=== PATIENT | female | born 1970 | race Caucasian/White ===

== ENCOUNTER 2018-02-24 15:18 | Emergency (ER) | payer MEDICAID ==
[~2018-02-24] VITALS: Ht 157.5 cm; Wt 53.2 kg
[2018-02-24 15:58] LABS: BASOPHIL % 0.3 % (0-2); PLATELET COUNT 306 x10^3mcL (130-400); RED CELL DISTRIBUTION WIDTH 12.7 % (11.5-14.5)
[2018-02-24 16:12] LABS: FREE T4 0.97 ng/dL (0.76-1.46); T4(THYROXINE) 5.8 ug/dL (4.7-13.3)
[2018-02-24 16:13] LABS: ALKALINE PHOSPHATASE 89 U/L (46-116); ALT/SGPT 32 U/L (14-59); AST/SGOT 14 U/L (15-37); BILIRUBIN TOTAL 0.38 mg/dL (0.20-1.00); CARBON DIOXIDE 26.1 mmol/L (21-32); CHLORIDE SERUM 100 mmol/L (98-107); CREATININE SERUM 0.8 mg/dL (0.6-1.0); GFR1 > 60 mL/min; POTASSIUM SERUM 3.9 mmol/L (3.5-5.1); SODIUM SERUM 135 mmol/L (136-145)
[2018-02-24 16:14] LABS: ALBUMIN 3.3 g/dL (3.4-5.0)
[2018-02-24 16:15] LABS: GLUCOSE SERUM 486 mg/dL (74-106)
[2018-02-24 16:48] LABS: T3 TOTAL 0.81 ng/mL
[2018-02-24 16:50] LABS: AMPHETAMINE QUAL UR NONE DETECTED (See below)
[2018-02-24 17:49] VITALS: BP 113/66
== END 2018-02-24 17:49 | disposition home or self-care (01) ==
LOC: ED 15:18
PROVIDERS: Emergency Medicine
DX: E11.65 Type 2 diabetes mellitus with hyperglycemia (principal)
CPT/HCPCS: 36415; 84439

== ENCOUNTER 2018-04-27 15:34 | Emergency (ER) | payer MEDICAID ==
[~2018-04-27] VITALS: Ht 160 cm; Wt 52.2 kg
[2018-04-27 16:00] VITALS: Ht 160 cm; Wt 52.2 kg
[2018-04-27 18:24] LABS: CALCIUM 8.8 mg/dL (8.5-10.1); CARBON DIOXIDE 29.5 mmol/L (21-32); CHLORIDE SERUM 102 mmol/L (98-107); CREATININE SERUM 0.5 mg/dL (0.6-1.0); GFR1 > 60 mL/min; GLUCOSE SERUM 335 mg/dL (74-106); POTASSIUM SERUM 3.5 mmol/L (3.5-5.1); SODIUM SERUM 138 mmol/L (136-145)
[2018-04-27 19:17] VITALS: BP 101/70
== END 2018-04-27 19:17 | disposition home or self-care (01) ==
LOC: ED 15:34
PROVIDERS: Emergency Medicine
DX: L30.9 Dermatitis, unspecified (principal); E11.65 Type 2 diabetes mellitus with hyperglycemia
CPT/HCPCS: Q0163

== ENCOUNTER 2019-04-21 07:32 | Emergency (ER) | payer MEDICAID ==
[~2019-04-21] VITALS: Ht 160 cm; Wt 49.0 kg
[2019-04-21 07:38] VITALS: Ht 160 cm; Wt 49.0 kg
[2019-04-21 08:30] LABS: CALCIUM 8.7 mg/dL (8.5-10.1); CARBON DIOXIDE 27.3 mmol/L (21-32); CHLORIDE SERUM 102 mmol/L (98-107); CREATININE SERUM 0.5 mg/dL (0.6-1.0); GFR1 > 60 mL/min; GLUCOSE SERUM 274 mg/dL (74-106); POTASSIUM SERUM 3.9 mmol/L (3.5-5.1); SODIUM SERUM 140 mmol/L (136-145)
[2019-04-21 08:34] LABS: ALBUMIN 3.6 g/dL (3.4-5.0); ALKALINE PHOSPHATASE 92 U/L (46-116); ALT/SGPT 34 U/L (14-59); AST/SGOT 15 U/L (15-37); BILIRUBIN TOTAL 0.3 mg/dL (0.20-1.00); LIPASE 333 IU/L (73-393); TOTAL PROTEIN, SERUM 7.6 g/dL (6.4-8.2)
[2019-04-21 08:56] LABS: BASOPHIL % 0.3 % (0-2); PLATELET COUNT 282 x10^3mcL (130-400); RED CELL DISTRIBUTION WIDTH 12.8 % (11.5-14.5)
[2019-04-21 09:50] LABS: microscopic required? YES; urine erythrocyte NEGATIVE (NEGATIVE)
[2019-04-21 12:00] VITALS: BP 124/75
== END 2019-04-21 12:08 | disposition home or self-care (01) ==
LOC: ED 07:32
PROVIDERS: Emergency Medicine
DX: K29.00 Acute gastritis without bleeding (principal); N39.0 Urinary tract infection, site not specified; N76.0 Acute vaginitis; E11.65 Type 2 diabetes mellitus with hyperglycemia
CPT/HCPCS: 82962; J1885; J2405; J7030; Q0092

== ENCOUNTER 2019-05-16 13:15 | Emergency (ER) | payer OTHER ==
[~2019-05-16] VITALS: Ht 170.2 cm; Wt 503.5 kg
[2019-05-16 13:26] VITALS: BP 106/57; Ht 170.2 cm; Wt 503.5 kg
== END 2019-05-16 16:15 | disposition home or self-care (01) ==
LOC: ED 13:15
DX: S92.354A Nondisplaced fracture of fifth metatarsal bone, right foot, initial encounter for closed fracture (principal); E11.9 Type 2 diabetes mellitus without complications; X50.1XXA Overexertion from prolonged static or awkward postures, initial encounter; Y93.E1 Activity, personal bathing and showering; Y92.091 Bathroom in other non-institutional residence as the place of occurrence of the external cause; Y99.8 Other external cause status
CPT/HCPCS: Q0092

== ENCOUNTER 2019-06-13 12:03 | Emergency (ER) | payer OTHER ==
[~2019-06-13] VITALS: Ht 160 cm; Wt 51.7 kg
[2019-06-13 12:09] VITALS: Ht 160 cm; Wt 51.7 kg
[2019-06-13 14:41] VITALS: BP 112/57
== END 2019-06-13 14:41 | disposition home or self-care (01) ==
LOC: ED 12:03
DX: S92.351D Displaced fracture of fifth metatarsal bone, right foot, subsequent encounter for fracture with routine healing (principal); E11.9 Type 2 diabetes mellitus without complications; W18.30XD Fall on same level, unspecified, subsequent encounter

== ENCOUNTER 2020-03-22 20:42 | Emergency (ER) | payer MEDICAID ==
[~2020-03-22] VITALS: Ht 160 cm; Wt 53.1 kg
[2020-03-22 20:53] VITALS: Ht 160 cm; Wt 53.1 kg
[2020-03-22 22:28] VITALS: BP 119/69
== END 2020-03-22 22:28 | disposition home or self-care (01) ==
LOC: ED 20:42
DX: E11.40 Type 2 diabetes mellitus with diabetic neuropathy, unspecified (principal); R20.2 Paresthesia of skin
CPT/HCPCS: 82962

== ENCOUNTER 2020-08-17 16:10 | Emergency (ER) | payer MEDICAID | END 2020-08-17 17:53 | disposition left against medical advice (07) | LOC: ED 16:10 | DX: Z53.21 Procedure and treatment not carried out due to patient leaving prior to being seen by health care provider (principal) ==